=== PATIENT | male | born 1945 | race American Indian/Alaskan Native ===

== ENCOUNTER 2016-05-05 08:00 | Outpatient (CLI) | payer MEDICARE ==
--- NOTE | 2016-05-05 08:57 | Cat Scan Report ---
CT CHEST WITHOUT CONTRAST INDICATION: COPD. COMPARISON: 07/17/2014. FINDINGS: Noncontrast chest CT again demonstrates mild cardiomegaly and aortic arch calcifications. No effusions. Patent central airway. Assessment of the great vessels and for detecting subtle lymphadenopathy limited due to lack of IV contrast. However, few mediastinal lymph nodes again noted, the largest precarinal about 1 cm in the short axis, axial image 113, series 2 while the largest vascular space lymph node is approximately 0.7 cm in the short axis, axial image 94. No significant axillary lymphadenopathy suspected. Unremarkable thyroid. Moderate emphysematous changes again noted throughout both lungs, most involving the upper lobes. Slight bibasilar scarring posteriorly. Mild nonspecific distal esophageal prominence/wall thickening. Few abdominal images again demonstrate bilateral adrenal prominence/adenomatous nodular hyperplasia also noted on January [address] Ascending colon anastomosis also partially imaged. Demineralized bones with multilevel spinal degenerative changes, including spurring and few mid to lower thoracic Schmorl's nodes. CONCLUSION: No significant interval change with mild cardiomegaly, moderate emphysematous changes and few other incidental findings again noted, as described. Thank you for the opportunity to participate in this patient's care.
== END 2016-05-05 08:01 | disposition home or self-care (01) ==
LOC: CT 08:00
PROVIDERS: ATTEND Internal Medicine Critical Care Medicine
DX: Z12.2 Encounter for screening for malignant neoplasm of respiratory organs (principal); I70.0 Atherosclerosis of aorta; J44.9 Chronic obstructive pulmonary disease, unspecified; I51.7 Cardiomegaly; M47.899 Other spondylosis, site unspecified
CPT/HCPCS: 71250

== ENCOUNTER 2017-05-09 09:50 | Emergency (ER) | payer MEDICARE ==
[2017-05-09] MEDS ORDERED: TYLENOL PO ONE (12:36)
--- NOTE | 2017-05-09 12:37 | Emergency Department Report ---
ED General Adult HPI - General Chief complaint: Upper Respiratory Infection Stated complaint: FLU LIKE SYMPTOMS Time Seen by Provider: 05/09/17 12:26 Source: patient, RN notes reviewed, old records reviewed Mode of arrival: Ambulatory Limitations: No Limitations - History of Present Illness Initial comments: Primary care Dr.: Dr. Tamia LOPES past medical history: COPD on home oxygen, hypertension, BPH This is a 71-year-old male, I have evaluated this patient in the past. Presents to the ER with frontal sinus headache. Headache present for 4 days. Headache is not sudden or thunderclap in nature. It did not which maximal intensity within an hour. It is not the worse headache of his life. Patient also describes bilateral pain and sacroiliac pain also for a week. Patient reports that his pains are achy, did not radiate anywhere, his hip pain and back pain increases with palpation, twisting, range of motion, and it decreases with rest. There is no abdominal pain. His headache does not have neck pain or neck stiffness, there is no change in vision, there is no claudication. He took a pain pill at home, but he cannot recall the name of the pain pill. -: Gradual, days(s) Location: head, back Radiation: non-radiation Quality: aching Consistency: intermittent Improves with: rest Worsens with: movement Associated Symptoms: headaches, shortness of breath (patient endorses chronic shortness of breath which is not new, worsened or different). denies: confusion , chest pain, cough, diaphoresis, fever/chills, loss of appetite, malaise, nausea/vomiting, syncope, weakness - Related Data Home Medications Medication Instructions Recorded Confirmed Last Taken Albuterol Sulfate [Ventolin HFA] 2 puff IH Q4H PRN 08/03/15 08/14/15 08/13/15 21 :00 2 PUFFS Aspirin [Aspirin TAB] 325 mg PO QDAY 08/03/15 08/09/15 08/07/15 Carvedilol [Coreg] 12.5 mg PO BID 08/03/15 08/14/15 08/13/15 09:00 Furosemide [Lasix] 20 mg PO QDAY 08/03/15 08/14/15 08/13/15 Isosorb Dinit/Hydralazine [Bidil 1 each PO TID 08/03/15 08/14/15 08/13/15 09:00 20/37.5MG] Potassium Chloride [K-Tab ER] 20 meq PO QDAY 08/03/15 08/09/15 08/03/15 Tamsulosin [Flomax] 0.4 mg PO BID 08/03/15 08/14/15 08/13/15 Tiotropium [Spiriva] 8 mcg IH QDAY 08/03/15 08/14/15 08/13/15 21:00 Allergies Allergy/AdvReac Type Severity Reaction Status Date / Time No Known Allergies Allergy Verified 08/03/15 16:44 ED Review of Systems ROS: Stated complaint: FLU LIKE SYMPTOMS Other details as noted in HPI ED Past Medical Hx - Past Medical History Previous Medical History?: Yes Hx Hypertension: Yes (takes beta dennise, lasix) Hx Heart Attack/AMI: Yes ([facility]/DR. MYERS;5 YRS AGO) Hx GERD: Yes Hx Arthritis: Yes Hx COPD: Yes (emphysema) Hx Tuberculosis: No Hx HIV: No Additional medical history: emphysema - Surgical History Past Surgical History?: Yes Hx Pacemaker: No Additional Surgical History: colon resection - Social History Smoking Status: Current Every Day Smoker Substance Use Type: Alcohol - Medications Home Medications: Home Medications Medication Instructions Recorded Confirmed Last Taken Type Albuterol Sulfate [Ventolin HFA] 2 puff IH Q4H PRN 08/03/15 08/14/15 08/13/15 21 :00 History 2 PUFFS Aspirin [Aspirin TAB] 325 mg PO QDAY 08/03/15 08/09/15 08/07/15 History Carvedilol [Coreg] 12.5 mg PO BID 08/03/15 08/14/15 08/13/15 09:00 History Furosemide [Lasix] 20 mg PO QDAY 08/03/15 08/14/15 08/13/15 History Isosorb Dinit/Hydralazine [Bidil 1 each PO TID 08/03/15 08/14/15 08/13/15 09:00 History 20/37.5MG] Potassium Chloride [K-Tab ER] 20 meq PO QDAY 08/03/15 08/09/15 08/03/15 History Tamsulosin [Flomax] 0.4 mg PO BID 08/03/15 08/14/15 08/13/15 History Tiotropium [Spiriva] 8 mcg IH QDAY 08/03/15 08/14/15 08/13/15 21:00 History ED Physical Exam - General Limitations: No Limitations General appearance: alert, in no apparent distress - Head Head exam: Present: atraumatic, normocephalic, other (there is no temporal tenderness) - Eye Eye exam: Present: normal appearance, PERRL, EOMI, other (visual acuity intact to finger counting, color perception, reading at a close distance). Absent: nystagmus - ENT ENT exam: Present: normal exam, normal orophraynx, mucous membranes moist, normal external ear exam - Neck Neck exam: Present: normal inspection, full ROM - Respiratory Respiratory exam: Present: normal lung sounds bilaterally. Absent: respiratory distress - Cardiovascular Cardiovascular Exam: Present: regular rate, normal rhythm, normal heart sounds. Absent: systolic murmur, diastolic murmur, rubs, gallop - GI/Abdominal GI/Abdominal exam: Present: soft, normal bowel sounds. Absent: distended, tenderness, guarding, rebound, rigid, pulsatile mass - Rectal Rectal exam: Present: deferred - Extremities Exam Extremities exam: Present: normal inspection, full ROM, normal capillary refill. Absent: pedal edema, joint swelling, calf tenderness - Back Exam Back exam: Present: normal inspection, full ROM, paraspinal tenderness (there is reproducible paralumbar tenderness. There is reproducible sacroiliac tenderness.). Absent: vertebral tenderness - Neurological Exam Neurological exam: Present: alert, oriented X3, CN II-XII intact, normal gait, other (Extraocular movements intact. Tongue midline. No facial droop. Facial sensation intact to light touch in the V1, V2, V3 distribution bilaterally. 5 and 5 strength in 4 extremities.. Sensation is intact to light touch in 4 extremities.). Absent: motor sensory deficit - Psychiatric Psychiatric exam: Present: normal affect, normal mood - Skin Skin exam: Present: warm, dry, intact, normal color. Absent: rash ED Course Vital Signs 05/09/17 05/09/17 05/09/17 09:53 13:40 13:43 Temperature 97.3 F L 98.5 F Pulse Rate 63 69 Respiratory 18 20 Rate Blood Pressure 125/83 Blood Pressure 178/87 [Left] O2 Sat by Pulse 95 93 93 Oximetry - Reevaluation(s) Reevaluation #1: 05/09/17 12:45 Differential diagnosis, including not limited to: Migraine headache, tension headache, cluster headache, sinus headache, upper respiratory tract infection, reproducible musculoskeletal back pain 05/09/17 12:46 Assessment and plan: 71-year-old male with frontal sinus headache, cough, congestion, reproducible muscular back pain. History is not consistent with ischemic stroke, hemorrhagic stroke, subarachnoid hemorrhage,, temporal arteritis. Back pain reproducible, no pulsatile abdominal mass, no clinical indication of epidural compression syndrome at this time. Patient was medicated appropriately. Highly doubt intracranial process, but given advanced age, we'll obtain noncontrast CT scan of the brain. GCS of 15, with an NIH score is 0 at this time. Reevaluation #2: 05/09/17 13:26 CT scan suggests hemorrhagic stroke, unexpectedly, possible aneurysmal component. Patient still has a GCS of 15, with an NIH score of 0, and is protecting his airway at this time. This hospital does not have neurosurgery or neurosurgical application support analyst available for consultation, he will therefore require transfer to facility that has aforementioned subspecialty services. Contacted the [facility], discussed the case with neuro application support analyst, Dr. Charley Brown. Both he and Dr Debbi Fafran accept patient as a tranfer. 500 mg of Keppra ordered, head of bed elevated 30, accepting physician does not recommend nimodipine at this time, patient is informed. Reevaluation #3: 05/09/17 13:46 Blood pressure now elevated, systolic 168, Cardene drip is ordered ED Medical Decision Making - Lab Data Vital Signs 05/09/17 09:53 Temperature 97.3 F L Pulse Rate 63 Respiratory 18 Rate Blood Pressure 125/83 O2 Sat by Pulse 95 Oximetry Critical Care Time: Yes Critical care time in (mins) excluding proc time.: 35 Critical care attestation.: If time is entered above; I have spent that time in minutes in the direct care of this critically ill patient, excluding procedure time. ED Disposition Clinical Impression: Hemorrhagic stroke Disposition: [id number]/TX-[id number] GEN HOSP IP Is pt being admited?: No Does the pt Need Aspirin: No Condition: Stable Referrals: PRIMARY CARE, [Primary Care Provider] - 3-5 Days
[2017-05-09] MEDS ORDERED: FLONASE NS ONE (13:00)
--- NOTE | 2017-05-09 13:18 | Cat Scan Report ---
CT HEAD WITHOUT CONTRAST: 05/09/17 CLINICAL: Headache. TECHNIQUE: 2.5-mm noncontrast scans. COMPARISON:None FINDINGS: An irregular hemorrhage in the medial right temporal lobe at the right MCA measures 2.0 x 1.6 cm.There is adjacent vasogenic edema with no mass effect or midline shift. Bilateral MCA calcifications. A focal opacity within the hemorrhage measures 118 Hounsfield units this is consistent with a calcification either in an aneurysm or within the right MCA. No metal clip is identified and there is no craniotomy defect to indicate a previous aneurysm repair. No other hemorrhage. Specifically no subarachnoid hemorrhage. Moderate bilateral periventricular white matter hypodensities and encephalomalacia in the left occipital lobe. The ventricles and sulci are normal for age. Partial opacification of ethmoid sinuses. A right maxillary sinus mucus retention cysts but otherwise clear sinuses. IMPRESSION: 1. 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 Aneurysm size cannot be determined by this exam. No subarachnoid hemorrhage. No significant mass effect or midline shift. 2. Moderate chronic white matter microangiopathy. 3. Chronic left occipital lobe infarct. I discussed the findings with in the emergency department on 05/09/17 at 13:10. EDY SAUER
[2017-05-09] MEDS ORDERED: KEPPRA 500 MG in NACL 0.9% 100 ML IV ONE (13:24)
[2017-05-09] MEDS ORDERED: CARDENE 50 MG in NACL 0.9% 250ML 230 ML IV SCH (14:00)
[2017-05-09 14:35] VITALS: BP 158/74
[2017-05-09 14:43] LABS: Hematocrit 44.8 % (35.5-45.6); Hemoglobin 14.7 gm/dl (11.8-15.2); Mean Corpuscular HGB Conc 33 % (32-34); Mean Corpuscular Hemoglobin 30 pg (28-32); Mean Corpuscular Volume 92 fl (84-94); Platelet Count 115 K/mm3 (140-440); Red Blood Count 4.87 M/mm3 (3.65-5.03); Red Cell Distribution Width 13.3 % (13.2-15.2)
[2017-05-09 14:56] LABS: BUN/Creatinine Ratio 19; Blood Urea Nitrogen 15 mg/dL (9-20); Hemolysis Index 3
[2017-05-09 15:02] LABS: Partial Thromboplastin Time 25.8 Sec. (24.2-36.6)
== END 2017-05-09 14:50 | disposition short-term general hospital (02) ==
LOC: ED 09:50
DX: I63.9 Cerebral infarction, unspecified (principal); I10 Essential (primary) hypertension; I25.2 Old myocardial infarction; K21.9 Gastro-esophageal reflux disease without esophagitis; F17.200 Nicotine dependence, unspecified, uncomplicated
CPT/HCPCS: 36415; 70450; 80048; 85027; 85610; 85730; 86850; 86900; 86901; 96365; 96367; 99291; J1953; J7050

== ENCOUNTER 2018-09-11 11:04 | Emergency (ER) | payer MEDICARE ==
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
[2018-09-11 11:27] VITALS: BP 118/64
[2018-09-11] MEDS ORDERED: NORCO 5/325 PO ONE (11:51)
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
== END 2018-09-11 11:55 | disposition home or self-care (01) ==
LOC: ED 11:04
DX: S39.012A Strain of muscle, fascia and tendon of lower back, initial encounter (principal); S80.12XA Contusion of left lower leg, initial encounter; I10 Essential (primary) hypertension; K21.9 Gastro-esophageal reflux disease without esophagitis; M19.90 Unspecified osteoarthritis, unspecified site; J43.9 Emphysema, unspecified; F19.10 Other psychoactive substance abuse, uncomplicated; Z79.82 Long term (current) use of aspirin; Z87.891 Personal history of nicotine dependence; V89.2XXA Person injured in unspecified motor-vehicle accident, traffic, initial encounter; Y93.89 Activity, other specified; Y92.488 Other paved roadways as the place of occurrence of the external cause; Y99.8 Other external cause status
CPT/HCPCS: 99282